=== PATIENT | female | born 1960 | race Caucasian/White ===

== ENCOUNTER 2017-08-05 19:14 | Emergency (ER) | payer BC ==
--- OUTSIDE RECORDS SUMMARY | 2017-08-05 19:25 | XMS REPORT ---
:1960 External Reference #:[id number] Author Organization [facility] Address [address] [place] [address] Phone [phone] Care Team Providers Name Role Phone Cristi Gaming M.D. Care Team Information Alumni Relations Manager Unavailable Cristi Gaming M.D. Primary Care Physician Unavailable Payers Type Date Identification Numbers Payment Provider Subscriber Commercial Effective: Policy Number: BC/DARIN Of PENG Ifeoma Smith 2011 [id number] PayID: [id number] [address] [address] [place] [address] Problems Date Description Provider Status Onset: 12/30/2014 Asthma without status asthmaticus Cristi Gaming M.D. 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 /Trimethoprim mouth Reinaldo, twice a [employer]IV[employer] PROFESSIONAL day Singulair 08/17 Active Tablets 10mg 30tabs Take One J30. Tablet Denilson, By Mouth ORE TESTER Once Daily Benadryl Allergy 08/17 Active Capsules 25mg 60caps 1-2 per J30. Blanca night as Denilson, needed ORE TESTER allergie s Fluticasone 08/17 Active Suspension 50mcg/Act 1bottle 2 sprays Propionate each Denilson, nostril ORE TESTER daily Ibuprofen 09/20 Hx Tablets 600mg 30tabs 1 tab by M79.601 Cristi mouth Ada, - every 8 M.D. 07/25 hours needed pain. take with food Cyclobenzaprine 09/20 Hx Tablets 5mg 30tabs 1/2-1 M79.601 Cristi HCL tablet Ada, - every M.D. 07/25 night at bedtime as needed No Active 08/17 Hx Unknown Medications /2016 - 08/17 Azithromycin 07/07 Hx Tablets 250mg 12tabs take 2 J06.9 tablets Kareen, - by mouth ORE TESTER 08/17 x 3d then take 1 tablet daily for next 6 days Cheratussin ac 07/07 Hx Syrup 100-10mg/ 120ml 1-2 J06.9 5ML teaspoon Kareen, - every 4 ORE TESTER 08/17 hours needed No Active 02/08 Hx Unknown Medications /2015 - 07/07 No Active 06/28 Hx Unknown Medications /2014 - 06/28 Proair HFA 06/28 Hx Aerosol 108(90Bas 17gm 2 puffs Akua /2014 e[facility] as Afnp-C 07/12 needed for cough/wh eeze Singulair 06/28 Hx Tablets 10mg 30tabs Take One Barbara Tablet Dany, - By Mouth Afnp-C 02/08 Once Daily Cetirizine HCL 06/28 Hx Tablets 10mg 30tabs Take One Barbara Tablet Dany, - By Mouth Afnp-C 02/08 Once Daily Buspirone HCL 01/31 Hx Tablets 10mg 30tabs 1 tab by 780.52 mouth Ada, - every M.D. 06/28 night needed anxiety/ sleep No Active 12/30 Hx Cristi Ada, - M.D. 01/31 Prednisone 05/11 Hx Tablets 10mg 12tabs 3 tabs 493.92 by mouth Dany, - every Afnp-C 05/17 day x 2; 2 tabs by mouth x 2, then 1 tab every day x 2 Zyrtec Allergy 05/11 Hx Tablets 10mg 30tabs 1 by 995.3 mouth Dany, - every Afnp-C 12/30 day ;october fill w/ generic Singulair 05/11 Hx Tablets 10mg 30tabs 1 by 995.3 mouth Dany, - every Afnp-C 12/30 day fill w/ generic Azithromycin 05/07 Hx Tablets 250mg 6tabs 2 tabs 466.0 today; Dany, - then one Afnp-C 05/12 tab qd 4 more days Advair HFA 05/07 Hx Aerosol 230-21mcg 1units 1 puff 493.92 /Act twice a Dany, - day Afnp-C 12/30 Strattera 02/28 Hx Capsules 80mg 30caps 1 po qd 314.00 Kareen, - ORE TESTER 02/28 Strattera 02/28 Hx Capsules 25mg samples 1 po qd 314.00 Kareen, - ORE TESTER 04/09 Ritalin 01/04 Hx Tablets 5mg 45tabs 1-2 po 314.00 bid Kareen, - ORE TESTER 02/28 Cortisporin Hx Ointment 1% Unknown /0000 - 02/28 Immunizations CPT Code Status Date Vaccine Lot # [id number] Given 03/29/2017 Influenza Vac, Quadriv[place], [place] [id number] Given 01/31/2015 Tdap Tetanus, W Pertussis [id number] Vital Signs Date Vital Result Comment 07/25/2017 BP Systolic 118 mmHg BP Diastolic 68 mmHg Heart Rate 80 /min Body Temperature 98.0 F Respiratory Rate 16 /min Height 64.5 inches 5'4.50" Weight 143.38 lb BMI (Body Mass Index) 24.2 kg/m2 09/20/2016 BP Systolic 110 mmHg BP Diastolic 60 mmHg Heart Rate 72 /min Body Temperature 98.4 F Respiratory Rate 16 /min Height 64.5 inches 5'4.50" Weight 139.12 lb BMI (Body Mass Index) 23.5 kg/m2 08/17/2016 BP Systolic 116 mmHg BP Diastolic 60 mmHg Heart Rate 78 /min Body Temperature 97.5 F Respiratory Rate 16 /min Height 64.5 inches 5'4.50" Weight 139.12 lb BMI (Body Mass Index) 23.5 kg/m2 07/07/2016 BP Systolic 100 mmHg BP Diastolic 60 mmHg Heart Rate 80 /min Body Temperature 98.8 F Respiratory Rate 18 /min Height 64.5 inches 5'4.50" Weight 133.00 lb BMI (Body Mass Index) 22.5 kg/m2 02/09/2016 BP Systolic 100 mmHg BP Diastolic 60 mmHg Heart Rate 72 /min Body Temperature 98.2 F Respiratory Rate 16 /min Height 64.5 inches 5'4.50" Weight 132.12 lb BMI (Body Mass Index) 22.3 kg/m2 06/28/2015 BP Systolic 110 mmHg BP Diastolic 70 mmHg Heart Rate 72 /min Body Temperature 98.0 F Respiratory Rate 18 /min Weight 142.00 lb 01/31/2015 BP Systolic 118 mmHg BP Diastolic 62 mmHg Heart Rate 68 /min Body Temperature 98.0 F Respiratory Rate 16 /min Height 64 inches 5'4" Weight 138.00 lb BMI (Body Mass Index) 23.7 kg/m2 12/30/2014 BP Systolic 100 mmHg BP Diastolic 64 mmHg Heart Rate 72 /min Body Temperature 98.4 F Respiratory Rate 16 /min Height 65.75 inches 5'5.75" Weight 134.00 lb BMI (Body Mass Index) 21.8 kg/m2 05/11/2014 BP Systolic 110 mmHg BP Diastolic 60 mmHg Heart Rate 76 /min Body Temperature 98.5 F Respiratory Rate 16 /min Height 65.75 inches 5'5.75" Weight 134.00 lb BMI (Body Mass Index) 21.8 kg/m2 05/07/2012 BP Systolic 100 mmHg BP Diastolic 62 mmHg Heart Rate 90 /min Body Temperature 98.2 F Height 65.75 inches 5'5.75" Weight 132.00 lb BMI (Body Mass Index) 21.5 kg/m2 12/07/2011 BP Systolic 100 mmHg BP Diastolic 60 mmHg Heart Rate 76 /min Height 65.75 inches 5'5.75" Weight 132.00 lb BMI (Body Mass Index) 21.5 kg/m2 04/06/2011 BP Systolic 102 mmHg BP Diastolic 70 mmHg Heart Rate 66 /min Body Temperature 98.3 F Height 65.75 inches 5'5.75" Weight 130.00 lb BMI (Body Mass Index) 21.1 kg/m2 02/28/2011 BP Systolic 110 mmHg BP Diastolic 62 mmHg Heart Rate 74 /min Body Temperature 97.5 F Height 65.75 inches 5'5.75" Weight 133.00 lb BMI (Body Mass Index) 21.6 kg/m2 01/12/2011 BP Systolic 94 mmHg BP Diastolic 50 mmHg Heart Rate 84 /min Body Temperature 98.8 F Height 65.75 inches 5'5.75" Weight 130.00 lb BMI (Body Mass Index) 21.1 kg/m2 01/04/2011 BP Systolic 102 mmHg BP Diastolic 64 mmHg Heart Rate 84 /min Body Temperature 97.9 F Height 65.75 inches 5'5.75" Weight 132.00 lb BMI (Body Mass Index) 21.5 kg/m2 Results Test Date Test Result H/L Range Note Laboratory test finding 05/10/2017 Surgical Pathology SEE RESULT 1, 2 BELOW Laboratory test finding 01/31/2015 Thin Prep W/HPV SEE NOTE 3 Comprehensive Metabolic 01/05/2015 Sodium 137 mEq/L 134-149 Prof Potassium 4.3 mEq/L 3.6-5.5 Chloride 100 mEq/L 94-112 Carbon Dioxide 26 mEq/L 21-32 Glucose 100 mg/dL 70-105 BUN 15 mg/dL 6-26 Creatinine 0.8 mg/dL 0.6-1.4 BUN/Creat Ratio 18.8 CALC 8.0-36.0 Calcium 9.6 mg/dL 8.6-10.2 Total Protein 7.2 g/dL 6.4-8.3 Albumin 4.4 g/dL 3.8-5.5 Globulin 2.8 g/dL 2.0-4.8 A/G Ratio 1.6 CALC 0.6-2.3 Alk. Phosphatase 63 U/L 30-110 Alt (SGPT) 11 U/L 7-35 Ast (Sgot) 18 U/L 5-34 Total Bilirubin 0.9 mg/dL 0.2-1.3 Complete Blood Count 01/05/2015 WBC 5.8 x10^3/UL 3.6-9.6 RBC 4.23 x10^6/UL 3.90-5.70 HGB 13.4 g/dL 12.1-17.2 HCT 40 % 36-50 MCV 95.0 fL 82.2-97.4 MCH 31.6 pg 27.6-33.3 MCHC 33.4 g/dL 33.0-35.5 RDW 14.5 % High 11.6-13.7 PLT 316 x10^3/UL 150-400 MPV 6.8 fL Low 7.4-10.4 Gran # 3.7 x10^3/UL 1.5-7.2 Lymph# 1.8 x10^3/UL 0.7-4.9 Carlisle# 0.3 x10^3/UL 0.1-0.9 Gran % 61.6 % 42.2-75.2 Lymph % 32.4 % 20.5-51.1 Carlisle% 6.0 % 1.7-9.3 Laboratory test finding 01/05/2015 TSH 0.49 mIU/L Low 0.50-6.00 4 Free T4 1.17 ng/dL 0.75-1.54 Lipid Profile 01/05/2015 Cholesterol 200 mg/dL 120-200 Triglycerides 76 mg/dL 30-200 HDL Cholesterol 56 mg/dL 30-85 LDL (Calculated) 129 CALC 0-129 VLDL Cholesterol 15 mg/dL 0-50 HDL Risk Factor 3.6 CALC 0.0-4.4 CBC Auto Diff 01/14/2012 White Blood Count 4.9 CUMM 4.8-10.8 Red Cell Count 4.06 CUMM Low 4.2-5.4 Hemoglobin 13.5 g/dL 12.0-16.0 Hematocrit 40 % 35-47 Mean Corpuscular Volume 98 um3 High 79-97 Mean Corpuscular Hemoglob 33 pg High 27-31 Mean Corpuscular HGB Cone 34 g/dL 32-36 Redcell Distribution WDTH 13 % 10.5-15 Platelet Count 269 CUMM 150-450 Mean Platelet Volume 8.7 um3 7.4-10.4 Gran % 56.6 % 38-83 Lymph % 30.1 % 20-45 Mononuclear % 9.5 % High 1-9 Eosinophil % 2.5 % 0-6 Basophil % 1.3 % 0-2 Abs Lymphs 1.5 1.0-4.8 Abs Mononuclear 0.5 0-0.8 Absolute Neutrophil Count 2.8 1.5-7.7 Abs Eosinophils 0.1 0-0.6 Abs Basophils 0.1 0-0.2 Comments 1 5 Comp Metabolic Panel 01/14/2012 Sodium 135 mmol/L 135-145 Potassium 4.3 mmol/L 3.5-5.0 Chloride 104 mmol/L 101-111 Co2 (Carbon Dioxide) 26.0 mmol/L 22-32 Anion Gap 5.0 mmol/L 2-11 6 Glucose 90 mg/dL 70-100 BUN 16 mg/dL 6-24 Creatinine 0.7 mg/dL 0.50-1.40 One Over Creatinine 1.42 BUN/Creatinine Ratio 22.9 High 8-20 Calcium 9.2 mg/dL 8.1-9.9 Total Protein 7.0 GM/DL 6.2-8.1 Albumin 4.0 GM/DL 3.6-5.4 Globulin 3.0 GM/DL 2-4 Albumin/Globulin Ratio 1.3 1-3 Bilirubin Total 1.0 mg/dL 0.4-1.5 7 Alkaline Phosphatase 49 U/L 30-110 Alt (SGPT) 14 U/L 14-54 Ast (Sgot) 17 U/L 12-42 eGFR Non- 88.2 > 60 eGFR 113.5 > 60 8 Lipid Profile (Trig/Chol/HDL) 01/14/2012 Triglyceride 43 mg/dL 40-200 Cholesterol 161 mg/dL Less Than 200 9 High Density Lipoprotein 57 mg/dL 40-60 10 Cholesterol/HDL Ratio 2.82 AVERAGE 1-4.44 Low Density Lipoprotein 95 mg/dL Less Than 100 11 Laboratory test finding 01/14/2012 TSH 0.38 MIU/ML 0.34-5.60 Laboratory test finding 12/07/2011 Thin Prep SEE NOTE 12 W/HPV(Lsil/MONICA/Asc) Ua - Non Micro (Fma) 12/07/2011 Appearance clear Color yellow Glucose, Urine (Fma/CMC/CTX) neg Bilirubin neg Ketones trace SP Grav >=1.030 Blood small menses PH 5.0 Protein neg Urobil 0.2 Nitrite neg Leukocytes (Fma/CMC/Centrex) neg 1 [id number] 2 SEE RESULT BELOW Name: IFEOMA SMITH : [address]: Todd Jones MD Acct: [id number] Unit: [id number] AGE: 56 Location: END[facility] Re05/10/17 SEX: F Status: DEP REF SPEC: [id number] CHARLES: 05/10/17- SUBM DR: Todd Jones MD REQ: [id number] RECD: 05/10/178 STATUS: FINN MASON DR: Cristi Gaming MD _ ORDERED: LEVEL 4/2 COMMENTS: [id number] FINAL DIAGNOSIS 1. Colon, 110 cm, biopsy: -- Tubular adenoma. -- No high grade dysplasia or malignancy. 2. Colon, 30 cm, biopsy: -- Hyperplastic polyp. CLINICAL HISTORY Screening/Surveillance for malignancy in asymptomatic patient. POST-OPERATIVE DIAGNOSIS Colonoscopy to cecum/terminal ileum, excellent prep ? 6-7 mm sessile polyp at 110 cm transverse colon ? cold snare; 3 mm polyp at 30 cm ? cold biopsy with forceps. Conclusions/Plan: Await pathology GROSS DESCRIPTION 1. The specimen is received in formalin labeled, Colon Polyp at 110 cm, and consists of two beltran irregular to polypoid soft tissue fragments measuring 0.2 x 0.2 x 0.1 cm and 0.4 x 0.3 x 0.2 cm which are submitted entirely in one cassette. 2. The specimen is received in formalin labeled, Biopsy Colon Polyp at 30 cm, and consists of a 0.6 by up to 0.3 x 0.2 cm beltran-pink irregular to polypoid soft tissue fragment which is submitted entirely in one cassette. Signed (signature on file) Eloy Aguilar MD 1223 END OF REPORT * ML=Testing performed at Main Lab [facility] [place] [address] Eloy Aguilar M.D. Director [facility] # [id number] [facility] [employer], [employer]. DEPARTMENT OF PATHOLOGY or Ext. [phone], Fax COMBINED HPV / WELDING ESTIMATOR CYTOLOGY REPORT Patient: IFEOMA SMITH : 1960 AGE: 54 Y SEX: F Acct: [id number] Procedure Date: 01/31/2015 Date Received: 02/01/2015 Requesting Provider: CRISTI GAMING MD Location: [facility] Case No. [id number] Requisition #: [id number] CYTOLOGIC INTERPRETATION: SPECIMEN ADEQUACY SATISFACTORY FOR EVALUATION. THE PRESENCE OF TRANSFORMATION ZONE COMPONENT CANNOT BE DETERMINED DUE TO ATROPHIC CHANGES. GENERAL CATEGORIZATION NEGATIVE FOR INTRAEPITHELIAL LESIONS OR MALIGNANCY RECOMMENDATIONS See Related Reference Test Result below. Refer to the corresponding web sites for 2012 updated general recommendation guidelines of U.S. preventive service task force for cervical cancer screening, and www.asccp.org//hqikkjnmh6153. COMMENTS Thin Prep Pap tests are examined with an FDA approved location-guidance system. RELATED REFERENCE TEST RESULT: HPV: "HIGH RISK" Source: CERVICAL Result: NEGATIVE Test Method: HC2 Performing Location: METHODOLOGY: HPV high risk is performed with the FDA approved Digene HC2 method whenever the specimen is cellular enough and the quantity of sample remaining in the vial after Thin Prep PAP slide preparation equals or greater than 4 ml. In cases of smaller sample (0.5 to 3.9 ml) the HPV high risk testing will be performed with Low Volume rfx. ( RN) Digene Hybrid Capture (HC2). FDA approved and detects 13 "high risk" HPV types (16/18/31/33/35/39/45/51/52/56/58/59/68) without differentiation. (02 BN) Low Volume rfx detects fourteen "high risk" HPV types (16/18/31/33/35/39/45/51/52/56/58/59/66/68) without differentiation. SPECIMEN SUBMITTED: * * (HPVR) THIN PREP W/HPV * * ENDOCERVICAL RELEVANT HISTORY: : 4 Contraceptive: NONE Para: 4 Prev.normal: 12/07/11 Comment: STONE UNLOADER Screened/Rescree Electronically Sign Out Performing oh by: Signed by: Date/Time: Location: [facility] EMILEE CHACKO, 02/03/2015 08:[address](ASCP) Note: The Pap smear is a screening test designed to aid in the detection of premalignant and malignant conditions of the uterine cervix. It is not a diagnostic procedure and should not be used as the sole means of detecting cervical cancer. Both false-positive and false-negative reports do occur. 00 UA Pap Smear performed at [facility] Dir: [place], [address] [place] [address] 01 web development director [facility] Fabius Dir: Julia Renteria MD, [address] [facility] [phone] 02 [facility] Dir: Demar Ma MD, [address] [place] [phone] For inquiries regarding HPV test results, the physician may contact [facility]: [phone] . 4 RESULTS VERIFIED BY REPEAT ANALYSIS 5 [id number] 6 Anion gap measurement may be of limited value in the presence of any alkalosis, especially in a combined acid base disorder. . 7 A metabolite of Naproxen, O-desmethylnaproxen, has been shown to interfere with the Jendrassik-Dorinda method for measuring total bilirubin. Samples from patients who have taken Naproxen have shown spurious elevation in total bilirubin levels. 8 Because ethnic data is not always readily available, this report includes an eGFR for both -Americans and non- Americans. The National Kidney Disease Education Program (NKDEP) does not endorse the use of the MDRD equation for patients that are not between the ages of 18 and 70, are , have extremes of body size, muscle mass, or nutritional status, or are non- or non-. According to the National Kidney Foundation, irrespective of diagnosis, the stage of the disease is based on the level of kidney function: Stage Description GFR(mL/min/1.73 m(2)) 1 Kidney damage with normal or decreased GFR 90 2 Kidney damage with mild decrease in GFR 60-89 3 Moderate decrease in GFR 30-59 4 Severe decrease in GFR 15-29 5 Kidney failure <15 (or dialysis) 9 CHOLESTEROL INTERPRETATION: Desirable: Less than 200 MG/DL Borderline-High Risk: 200-239 MG/DL High-Risk: 240 MG/DL and over 10 HDL INTERPRETATION: Undesirable: High Risk: Less than 40 MG/DL Desirable: Low Risk: Greater than 60 MG/DL 11 LDL INTERPRETATION: Low Risk Optimal Level: LDL Less than 100 MG/DL Near or Above Optimal: LDL 100-129 MG/DL Borderline High Risk: LDL 130-159 MG/DL High Risk: LDL 160-189 MG/DL Very High Risk: LDL Greater than 189 MG/DL 12 [employer], [employer]. DEPARTMENT OF PATHOLOGY or Extension 0768 WELDING ESTIMATOR CYTOLOGY REPORT PATIENT: IFEOMA SMITH : 1960 AGE: 51 Y SEX: F ACCT: [id number] PROCEDURE DATE: 12/07/2011 DATE RECEIVED: 12/10/2011 REQUESTING PHYSICIAN: BARBARA SAENZ NP LOCATION: [facility] Case No. [id number] PATIENT DATA: [id number] SPECIMEN SUBMITTED: * * (HPVII) THIN PREP W/HPV (LSIL/ASC/MONICA) * * ENDOCERVICAL RELEVANT HISTORY: LMP: 11/30/2011 Contraceptive: NONE : 4 Prev.normal: 12/09 Para: 4 SPECIMEN ADEQUACY SATISFACTORY FOR EVALUATION, ENDOCERVICAL TRANSFORMATION ZONE COMPONENT PRESENT GENERAL CATEGORIZATION NEGATIVE FOR INTRAEPITHELIAL LESIONS OR MALIGNANCY INTERPRETATION/ RESULT PREDOMINANCE OF BACTERIA CONSISTENT WITH A SHIFT IN VAGINAL ALANA. COMMENTS Thin Prep Pap tests are examined with an FDA approved location-guidance system. ADDITIONAL COPIES SENT TO: Screened/Rescreened Electronically Signed Sign Out Date/Time: by: by: SHAWNA CHACKO, 12/10/2011 17:28 CT(ASCP) Note: The Pap smear is a screening test designed to aid in the detection of premalignant and malignant conditions of the uterine cervix. It is not a diagnostic procedure and should not be used as the sole means of detecting cervical cancer. Both false-positive and false-negative reports do occur. 00 UA Pap Smear performed at [facility] Dir: Fabio Aragon MD, [address] [facility] [address] 01 web development director [facility] Dir: Ankur Lagos MD, [address] [facility] [phone] 02 [facility] Dir: Demar Ma MD, [address] [place] [phone] For inquiries regarding HPV test results, the physician may contact [facility]: [phone] "" Procedures Date CPT Code Description Status 02/06/2017 Mammogram Completed 08/17/2016 63116 Remove Impact Cerumen Irrigati Completed 02/02/2015 Mammogram Completed 05/11/2014 47081 Pulse Oximetry Completed 01/14/2012 Mammogram Completed Encounters Type Date Location Provider CPT E/M Dx Office Visit 09/20/2016 4:50p Main Office Cristi Gaming M.D. 93310 M79.601 Z12.31 Z12.11 Office Visit 08/17/2016 3:30p Main Office ABDOUL [place] 48210 J30.89 H92.02 H61.22 Office Visit 07/07/2016 9:45a Main Office ABDOUL Luis 87042 J06.9 Office Visit 02/09/2016 2:00p Main Office [place] 80796 G47.00 N64.4 Z00.00 Office Visit 06/28/2015 11:30a [facility] Office Rosa Dunlap 22448 J06.9 J04.0 J45.20 Office Visit 01/31/2015 1:00p [facility] Office Cristi Gaming M.D. 13846 V70.0 V72.31 V76.51 V76.12 780.52 V06.1 v06.5 Office Visit 12/30/2014 6:20p Main Office Cristi Gaming M.D. 17932 448.1 V76.12 784.7 V77.91 V76.51 Office Visit 05/11/2014 7:00p Main Office Barbara Saenz trenaC 71790 493.92 995.3 Office Visit 05/07/2012 1:45p [facility] Office Barbara Phelanigne trena-C 15282 466.0 493.92 Office Visit 12/07/2011 1:15p [facility] Barbara Dany trena-C 71959 V72.31 Office Visit 04/06/2011 4:15p Main Office Dee Mathur [facility] 69505 314.00 Office Visit 02/28/2011 9:30a [facility] Office Dee Mathur [facility] 43687 314.00 Office Visit 01/12/2011 3:30p Main Office Dee Mathur [facility] 98957 314.00 Office Visit 01/04/2011 10:00a [facility] Office Dee Mathur [facility] 64080 314.00 Plan of Care 07/25/2017 - Christina Najera, NPL03.211 Cellulitis of faceNew Medication: Sulfamethoxazole/Trimethoprim DS 800-160 mgComments:Apply warm soaks frequently and start the antibiotic tonight. If you are not having improvement by Saturday please call the office before 12pm and get me the message.Any dramatic worsening or fever should be evaluated in the emergency department.
--- OUTSIDE RECORDS SUMMARY | 2017-08-05 19:25 | XMS REPORT ---
:1960 External Reference #:[id number] Author Organization [facility] Address [address] [place] [address] Phone [phone] Care Team Providers Name Role Phone Cristi Gaming M.D. Care Team Information Application Integration Specialist Unavailable Cristi Gaming M.D. Primary Care Physician Unavailable Payers Type Date Identification Numbers Payment Provider Subscriber Commercial Effective: Policy Number: BC/DARIN Of [employer] Ifeoma Smith 2011 [id number] PayID: [id number] [address] [address] [place] [address] Problems Date Description Provider Status Onset: 12/30/2014 [...] Form Strength Qnty SIG Indications Ordering Provider Prednisone 07/27 Active Tablets 20mg 6tabs take 2 L23.2 Christina Priyank /2018 by mouth marj Najera one ROUTE SERVICE REPRESENTATIVE dose daily until gone Sulfamethoxazole 07/25 Active Tablets 800-160mg 14tabs 1 by L03.211 Christina C. /Trimethoprim mouth Reinaldo, twice a ROUTE SERVICE REPRESENTATIVE day Singulair 08/17 Active Tablets 10mg 30tabs Take One Tablet Denilson, By Mouth STENOGRAPHER SECRETARY Once Daily Benadryl Allergy 08/17 Active Capsules 25mg 60caps 1-2 per J. Blanca night as Denilson, needed STENOGRAPHER SECRETARY allergie s Fluticasone 08/17 Active Suspension 50mcg/Act 1bottle 2 sprays each Denilson, nostril STENOGRAPHER SECRETARY daily Ibuprofen 09/20 Hx Tablets 600mg 30tabs 1 tab by M79.601 Cristi mouth [place], - every 8 M.D. 07/25 hours needed pain. take with food Cyclobenzaprine 09/20 Hx Tablets 5mg 30tabs 1/2-1 M79.601 Cristi HCL tablet [place], - every M.D. 07/25 night at bedtime as needed No Active 08/17 Hx Unknown Medications /2016 - 08/17 Azithromycin 07/07 Hx Tablets 250mg 12tabs take 2 J06.9 tablets Kareen, - by mouth STENOGRAPHER SECRETARY 08/17 x then take 1 tablet daily for next 6 days Cheratussin ac 07/07 Hx Syrup 100-10mg/ 120ml 1-2 J06.9 5ML teaspoon Kareen, - every 4 STENOGRAPHER SECRETARY 08/17 hours needed No Active 02/08 Hx Unknown Medications /2015 - 07/07 No Active 06/28 Hx Unknown Medications /2014 - 06/28 Proair HFA 06/28 Hx Aerosol 108(90Bas 17gm 2 puffs Akua e) every 4 [place], - mcg/Act hours as Afnp-C 07/12 needed for cough/wh eeze Singulair 06/28 Hx Tablets 10mg 30tabs Take One Barbara Tablet Dany, - By Mouth Afnp-C 02/08 Once Daily Cetirizine HCL 06/28 Hx Tablets 10mg 30tabs Take One Barbara Tablet Dany, - By Mouth Afnp-C 02/08 Once /2015 Daily Buspirone HCL 01/31 Hx Tablets 10mg 30tabs 1 tab by 780.52 mouth [place], - every M.D. 06/28 night needed anxiety/ sleep No Active 12/30 Hx Cristi Medications [place], - M.D. 01/31 Prednisone 05/11 Hx Tablets [...] 995.3 mouth Dany, - every Afnp-C 12/30 day; fill w/ generic Azithromycin 05/07 Hx Tablets 250mg 6tabs 2 tabs 466.0 today; Dany, - then one Afnp-C 05/12 tab qd x 4 more days Advair HFA 05/07 Hx Aerosol 230-21mcg 1units 1 puff 493.92 /Act twice a Dany, - day Afnp-C 12/30 Strattera 02/28 Hx Capsules 80mg 30caps 1 po qd 314.00 Kareen, - STENOGRAPHER SECRETARY 02/28 Strattera 02/28 Hx Capsules 25mg samples 1 po qd 314.00 Kareen, - STENOGRAPHER SECRETARY 04/09 Ritalin 01/04 Hx Tablets 5mg 45tabs 1-2 po 314.00 bid Kareen, - STENOGRAPHER SECRETARY 02/28 Cortisporin 00 Hx Ointment 1% Unknown /0000 - 02/28 Immunizations CPT Code Status Date Vaccine Lot # [id number] Given 03/29/2017 Influenza Vac, Quadrivalent, [place] [id number] Given 01/31/2015 Tdap Tetanus, W Pertussis [id number] Vital Signs Date Vital Result Comment 07/27/2017 BP Systolic 100 mmHg BP Diastolic 60 mmHg Heart Rate 72 /min Body Temperature 97.7 F Respiratory Rate 16 /min Height 64.5 inches 5'4.50" 07/25/2017 BP Systolic 118 mmHg BP Diastolic [...] 3.7 x10^3/UL 1.5-7.2 Lymph# 1.8 x10^3/UL 0.7-4.9 [place]# 0.3 x10^3/UL 0.1-0.9 Gran % 61.6 % 42.2-75.2 Lymph % 32.4 % 20.5-51.1 [place]% 6.0 % 1.7-9.3 Laboratory test finding 01/05/2015 [...] 0.2 Nitrite neg Leukocytes (Fma/CMC/Centrex) neg 1 [id number] 2 SEE RESULT BELOW Name: IFEOMA SMITH : [address]: Todd Jones MD Acct: [id number] Unit: [id number] AGE: 56 Location: [facility] Re05/10/17 SEX: F Status: DEP REF SPEC: [id number] CHARLES: 05/10/17- SUBM DR: Todd Jones MD REQ: [id number] RECD: 05/10/178 STATUS: FINN MASON DR: Cristi Gaming MD _ ORDERED: LEVEL 4/2 COMMENTS: [id number] FINAL DIAGNOSIS 1. Colon, 110 cm, biopsy: [...] ML=Testing performed at Main Lab DEPARTMENT OF PATHOLOGY, [address] [place] [address] Eloy Aguilar M.D. Director [facility] # [id number] 3 [employer] DEPARTMENT OF PATHOLOGY or Ext. 9550, Fax COMBINED HPV / [facility] [employer] CYTOLOGY REPORT Patient: IFEOMA SMITH : 1960 AGE: 54 Y SEX: F Acct: [id number] Procedure Date: 01/31/2015 Date Received: 02/01/2015 Requesting Provider: CRISTI GAMING MD Location: [facility] Case No. [id number] Requisition #: [id number] CYTOLOGIC INTERPRETATION: SPECIMEN ADEQUACY SATISFACTORY FOR EVALUATION. THE PRESENCE OF TRANSFORMATION ZONE COMPONENT CANNOT BE DETERMINED DUE TO ATROPHIC CHANGES. GENERAL CATEGORIZATION NEGATIVE FOR INTRAEPITHELIAL LESIONS OR MALIGNANCY RECOMMENDATIONS See Related Reference Test Result below. Refer to the corresponding web sites for 2012 updated general recommendation guidelines of U.S. preventive service task force for cervical cancer screening, and www.asccp.org//maryvvexs4389. COMMENTS Thin Prep Pap tests are examined with an FDA approved location-guidance system. RELATED REFERENCE TEST RESULT: HPV: "HIGH RISK" Source: CERVICAL Result: NEGATIVE Test Method: HC2 Performing Location: 01 METHODOLOGY: HPV high risk is performed with [...] Contraceptive: NONE Para: 4 Prev.normal: 12/07/11 Comment: RISK CONTROL FIELD REPRESENTATIVE Screened/Rescree Electronically Sign Out Performing oh by: Signed by: Date/Time: Location: [facility] EMILEE CHACKO, 02/03/2015 08:[address](ASCP) Note: The Pap smear is a screening test designed to aid in the detection of premalignant and malignant conditions of the uterine cervix. It is not a diagnostic procedure and should not be used as the sole means of detecting cervical cancer. Both false-positive and false-negative reports do occur. 00 UA Pap Smear performed at [facility] [place]: [place], [address] [place] [address] 01 gyroscope technician Teagan Noonan Dir: Julia Renteria MD, [address] [facility] [address] 02 Lab [facility] [place] Dir: Demar Ma MD, [address] [place] [phone] For inquiries regarding HPV test results, the physician may contact [facility]: [phone] . 4 RESULTS VERIFIED BY REPEAT ANALYSIS 5 [id number] 6 Anion gap measurement may be of limited value in the presence of any alkalosis, especially in a combined acid base disorder. . 7 A metabolite of Naproxen, O-desmethylnaproxen, has been shown to interfere with the [place] method for measuring total bilirubin. Samples from [...] Risk: LDL Greater than 189 MG/DL 12 [employer] DEPARTMENT OF PATHOLOGY or Extension [address] [facility] CYTOLOGY REPORT PATIENT: IFEOMA SMITH : 1960 AGE: 51 Y SEX: F ACCT: [id number] PROCEDURE DATE: 12/07/2011 DATE RECEIVED: 12/10/2011 REQUESTING PHYSICIAN: BARBARA SAENZ NP LOCATION: [facility] Case No. [id number] PATIENT DATA: [id number] SPECIMEN SUBMITTED: * * (HPVII) THIN PREP [...] occur. 00 UA Pap Smear performed at [facility] Dir: Fabio Aragon MD, [address] [facility] [address] 01 gyroscope technician Teagan Noonan Dir: Ankur Lagos MD, [address] [facility] [address] 02 Lab [facility] [place] Dir: Demar Ma MD, [address] [place] [phone] For inquiries regarding HPV test results, the physician may contact [facility]: [phone] "" Procedures Date CPT Code Description Status 02/06/2017 Mammogram Completed 08/17/2016 45634 Remove Impact Cerumen Irrigati Completed 02/02/2015 Mammogram Completed 05/11/2014 92599 Pulse Oximetry Completed 01/14/2012 Mammogram Completed Encounters Type Date Location Provider CPT E/M Dx Office Visit 07/25/2017 6:30p [place] [address] L03.211 Office Visit 09/20/2016 4:50p Main Office Cristi Gaming M.D. 88230 M79.601 Z12.31 Z12.11 Office Visit 08/17/2016 3:30p Main Office ABD[place]L [place] [address] J30.89 H92.02 H61.22 Office Visit 07/07/2016 9:45a Main Office Dee Mathur, [facility] [address] J06.9 Office Visit 02/09/2016 2:00p Main Office Balnca Oreilly, [facility] [address] G47.00 N64.4 Z00.00 Office Visit 06/28/2015 11:30a [facility] Office Akua Johnson [place] [address] J06.9 J04.0 J45.20 Office Visit 01/31/2015 1:00p [facility] Office Cristi Gaming M.D. 63910 V70.0 V72.31 V76.51 V76.12 780.52 V06.1 v06.5 Office Visit 12/30/2014 6:20p Main Office Cristi Gaming M.D. 48014 448.1 V76.12 784.7 V77.91 V76.51 Office Visit 05/11/2014 7:00p Main Office Barbara Saenz [facility] [address] 493.92 995.3 Office Visit 05/07/2012 1:45p [facility] Office Barbara Saenz [facility]- [address] 466.0 493.92 Office Visit 12/07/2011 1:15p [facility] Office Barbara Saenz [place]- 89702 V72.31 Office Visit 04/06/2011 4:15p Main Office Dee Mathur [facility] [address] 314.00 Office Visit 02/28/2011 9:30a [facility] Office Dee Mathur [facility] [address] 314.00 Office Visit 01/12/2011 3:30p Main Office Dee Mathur [facility] [address]33[address] 314.00 Office Visit 01/04/2011 10:00a [facility] Office Dee Mathur [facility] [address] 314.00 Plan of Care 07/27/2017 - Christina Najera, NPL03.211 Cellulitis of faceComments:Finish the antibiotics; I do not think this is a drug allergy. You should stop them right away if you have wide-spread rash.L23.2 Allergic contact dermatitis due to cosmeticsNew Medication:Prednisone 20 mgComments:call SIMIN if condition changes/ worsens in any way
[2017-08-05 20:46] VITALS: BP 119/79
[2017-08-05] MEDS ORDERED: Oseltamivir CAP* 75 MG CAP PO ONE (21:03)
--- NOTE | 2017-08-05 21:41 | RAD ---
HISTORY: Cough, fever COMPARISONS: None VIEWS: 4: Frontal dual-energy and lateral views of the chest. FINDINGS: CARDIOMEDIASTINAL SILHOUETTE: The cardiomediastinal silhouette is normal. GIGI: The gigi are normal. PLEURA: The costophrenic angles are sharp. No pleural abnormalities are noted. LUNG PARENCHYMA: There is hyperinflation with flattening of the diaphragm and expansion of the AP diameter of the chest. ABDOMEN: The upper abdomen is clear. There is no subphrenic gas. BONES AND SOFT TISSUES: No bone or soft tissue abnormalities are noted. OTHER: None. IMPRESSION: HYPERINFLATION, CONSISTENT WITH COPD. NO ACTIVE CARDIOPULMONARY DISEASE.
--- NOTE | 2017-08-05 22:02 | UC ---
Brenda Baxter Julia, scribed for Lobo Nunes MD on 08/05/17 at 2101 . Respiratory Complaint HPI - HPI Summary HPI Summary: This patient is a 56 year old F presenting to [facility] with a chief complaint of pain with cough and general malaise since last evening. Patient reports mild SOB , dyspnea, body aches, and cough. Patient denies ear pain. The patient rates the pain 8/10 in severity. Symptoms aggravated by cough. Patient has hx of bronchitis. Pt has sick contact at home. - History of Current Complaint Chief Complaint: UCRespiratory Stated Complaint: COUGH,FEVER Hx Obtained From: Patient Onset/Duration: Lasting Hours Pain Intensity: 8 Pain Scale Used: 0-10 Numeric Character: Cough: Nonproductive Aggravating Factors: Other - cough Associated Signs And Symptoms: Positive: Dyspnea - Allergies/Home Medications Allergies/Adverse Reactions: Allergies Allergy/AdvReac Type Severity Reaction Status Date / Time No Known Allergies Allergy Verified 08/05/17 20:46 Home Medications: Home Medications Cetirizine* [ZyrTEC 10 MG TAB*] 10 mg PO DAILY 08/05/17 [History Confirmed 08/05] PMH/Surg Hx/FS Hx/Imm Hx Respiratory History: Bronchitis - Surgical History Surgical History: None - Family History Known Family History: Negative: Cardiac Disease Family History: no known cardio-vascular history in family linage - Social History Alcohol Use: None Substance Use Type: None Smoking Status (MU): Never Smoked Tobacco Review of Systems Constitutional: Fever, Other - generla malaise ENT: Negative - ear pain Respiratory: Shortness Of Breath, Cough Musculoskeletal: Myalgia - body aches All Other Systems Reviewed And Are Negative: Yes Physical Exam Triage Information Reviewed: Yes Vital Signs: Initial Vital Signs Temp 100.6 F 08/05/17 20:42 Pulse 89 08/05/17 20:42 Resp 16 08/05/17 20:42 BP 119/79 08/05/17 20:42 Pulse Ox 100 08/05/17 20:42 Vital Signs Reviewed: Yes - Additional Comments Appearance: Well-appearing, Well-nourished Skin: Warm Eyes: Normal ENT: Normal Neck: Supple, nontender Respiratory: Clear to auscultation Cardiovascular: Normal S1, S2. No murmurs. Normal distal pulses in tibial and radial bilaterally. Abdomen: Soft, nontender Musculoskeletal: Normal, Strength/ROM Intact Neurological: Normal, A&Ox3 Psychiatric: Normal General: No acute distress UC Diagnostic Evaluation - Laboratory O2 Sat by Pulse Oximetry: 100 Respiratory Course/Dx - Course Course Of Treatment: CXR negative for acute pathology, treated emprically with tamiflu, in no acute resp distress. insturcted to fu with pmd, agrees to and understnads dc instructions. - Differential Dx/Diagnosis Provider Diagnoses: influenza, cough Discharge - Discharge Plan Condition: Stable Disposition: HOME Prescriptions: Oseltamivir CAP* [Tamiflu CAP*] 75 mg PO BID #10 cap Patient Education Materials: Influenza (ED) Referrals: Evangelina Gaming MD [Primary Care Provider] - Additional Instructions: PLEASE TAKE MEDICATIONS DIRECTED PLEASE KEEP YOURSELF WELL HYDRATED WITH SMALL AMOUNTS OF FLUID MORE FREQUENTLY THROUGHOUT THE DAY PLEASE SEEK MEDICAL ATTENTION IMMEDIATELY IF YOU HAVE ANY WORSENING OR CONCERNING SYMPTOMS PLEASE MAKE AN APPOINTMENT TO BE SEEN BY YOUR PRIMARY CARE DOCTOR WITHIN 1 WEEK The documentation as recorded by the Brenda iglesias Julia accurately reflects the service I personally performed and the decisions made by me, Lobo Nunse MD.
== END 2017-08-05 22:13 | disposition home or self-care (01) ==
LOC: UCEAST 19:14
DX: J11.1 Influenza due to unidentified influenza virus with other respiratory manifestations (principal); R05 Cough
CPT/HCPCS: 71046; 99212; A9270-GY; G0463